=== PATIENT | male | born 1950 | race Caucasian/White ===

== ENCOUNTER 2018-10-29 09:31 | Day surgery (SDC) | payer MEDICARE ==
[2018-10-27 09:24] VITALS: BMI 27.3
[~2018-10-29 09:31] MED LIST: LACTATED RINGERS 1,000 ML IV SCH; LIDOCAINE 1% 20 ML VIAL (10MG/ML) FOR IV START INTRADERMA PRN
[2018-10-29 10:59] VITALS: RESP 16; TEMP 98.8
[2018-10-29] MEDS ORDERED: PROPOFOL 10 MG/ML 20 ML VIAL IV ONE (11:32)
[2018-10-29] MEDS ORDERED: GLUCAGON 1 MG/ML VIAL ONE (11:32)
--- NOTE | 2018-10-29 11:36 | P.GSHP ---
History of Present Illness H&P Date: 10/29/18 Chief Complaint: Screening colonoscopy This is a 68-year-old male who presents today for screening colonoscopy. Patient denies any significant GI complaints. 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 History of Any Multi-Drug Resistant Organisms: None Reported Past Surgical History: No Surgical Hx Reported Additional Past Surgical History / Comment(s): COLONOSCOPY Past Anesthesia/Blood Transfusion Reactions: No Reported Reaction Smoking Status: Never smoker - Past Family History Mother Family Medical History: No Reported History Medications and Allergies Home Medications Medication Instructions Recorded Confirmed Type No Known Home Medications 07/15/15 10/29/18 History Allergies Allergy/AdvReac Type Severity Reaction Status Date / Time No Known Allergies Allergy Verified 10/29/18 10:59 Surgical - Exam Vital Signs Temp Pulse Resp BP Pulse Ox 98.8 F 58 L 16 136/78 96 10/29/18 10:58 10/29/18 10:58 10/29/18 10:58 10/29/18 10:58 10/29/18 10:58 - General well developed, well nourished, no distress - Eyes PERRL - ENT normal pinna - Neck no masses - Respiratory normal expansion - Cardiovascular Rhythm: regular - Abdomen Abdomen: soft, non tender Assessment and Plan Assessment: We'll perform screening colonoscopy.
--- NOTE | 2018-10-29 11:51 | P.OP ---
Date of Procedure: 10/29/18 Preoperative Diagnosis: Reading colonoscopy Postoperative Diagnosis: Diverticulosis Procedure(s) Performed: Colonoscopy Anesthesia: MAC Surgeon: Raphael Benites Pathology: none sent Condition: stable Disposition: PACU Description of Procedure: The patient's placed on the endoscopy table in the lateral position. He received IV sedation. Digital rectal exam was performed which revealed no abnormalities. Flexible colonoscope was then placed patient anus passed throughout the entire colon. The ileocecal valve was visualized. The cecum, ascending transverse colon appeared normal. In the descending; there is extensive diverticular changes. The scope was then brought back the rectum this appeared normal. Scope was withdrawn for patient.
[2018-10-29 12:19] VITALS: BP 136/75; PULSE 60
== END 2018-10-29 12:25 | disposition home or self-care (01) ==
LOC: ORWHC2ENDO 09:31
PROVIDERS: ATTEND Surgery
DX: Z12.11 Encounter for screening for malignant neoplasm of colon (principal); K57.30 Diverticulosis of large intestine without perforation or abscess without bleeding; H93.19 Tinnitus, unspecified ear
CPT/HCPCS: J1610; J2704; G0121

== ENCOUNTER 2022-09-28 06:34 | Observation (INO) | payer MEDICARE ==
--- NOTE | 2022-09-28 06:54 | ED ---
Arrhythmia/Palpitations HPI - General Chief Complaint: Arrhythmia/Palpitations Stated Complaint: A-Fib Time Seen by Provider: 09/28/22 06:43 Source: patient, RN notes reviewed Mode of arrival: ambulatory Limitations: no limitations - History of Present Illness Initial Comments: This is a 72-year-old male who presents to the emergency department for new o nset A. fib. Patient was at [facility] this morning to get a radiofrequency ablation for chronic back pain. States that he has gotten this procedure every 6 months for the last 4-5 years. When they went to get his vitals and hook him up to the monitor at [facility], he was found to be in atrial fibrillation. He has no history of atrial fibrillation. Patient denies feeling any chest pain, shortness of breath, or palpitations. States that he does not have any medical problems and is not on any medication. Denies any fevers, chills, sore throat, cough, dyspnea, chest pain, palpitations, abdominal pain, nausea, vomiting, diarrhea, or headaches. - Related Data Home Medications Medication Instructions Recorded Confirmed Ibuprofen [Motrin] 800 mg PO BID PRN 09/28/22 09/28/22 Ibuprofen [Motrin] 800 mg PO DAILY 09/28/22 09/28/22 Allergies Allergy/AdvReac Type Severity Reaction Status Date / Time No Known Allergies Allergy Verified 09/28/22 08:42 Review of Systems ROS Statement: Those systems with pertinent positive or pertinent negative responses have been documented in the HPI. ROS Other: All systems not noted in ROS Statement are negative. 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 History of Any Multi-Drug Resistant Organisms: None Reported Past Surgical History: No Surgical Hx Reported Additional Past Surgical History / Comment(s): COLONOSCOPY Past Anesthesia/Blood Transfusion Reactions: No Reported Reaction Past Psychological History: No Psychological Hx Reported Smoking Status: Never smoker Past Alcohol Use History: Occasional Past Drug Use History: None Reported - Past Family History Mother Family Medical History: No Reported History General Exam Limitations: no limitations General appearance: alert, in no apparent distress Head exam: Present: atraumatic, normocephalic, normal inspection Respiratory exam: Present: normal lung sounds bilaterally. Absent: respiratory distress, wheezes, rales, rhonchi, stridor Cardiovascular Exam: Present: tachycardia, irregular rhythm Neurological exam: Present: alert, oriented X3, CN II-XII intact Psychiatric exam: Present: normal affect, normal mood Skin exam: Present: warm, dry, intact, normal color. Absent: rash Course Vital Signs 09/28/22 09/28/22 09/28/22 06:39 07:00 08:00 Temperature 98.1 F Pulse Rate 133 H 98 72 Respiratory 18 18 18 Rate Blood Pressure 133/81 121/83 122/87 O2 Sat by Pulse 98 95 96 Oximetry 09/28/22 09/28/22 09/28/22 09:00 10:00 11:00 Temperature Pulse Rate 101 H 117 H 107 H Respiratory 18 18 18 Rate Blood Pressure 116/83 109/55 123/85 O2 Sat by Pulse 95 95 95 Oximetry 09/28/22 12:00 Temperature Pulse Rate 112 H Respiratory 18 Rate Blood Pressure 110/77 O2 Sat by Pulse 96 Oximetry Medical Decision Making - Medical Decision Making This is a 72-year-old male who presents to the emergency department for new onset atrial fibrillation. Was pt. sent in by a medical professional or institution? @ -No Did you speak to anyone other than the patient for history? @ -No Did you review nursing and triage notes? @ -Yes, and I agree, it is accurate with regards to the patient's symptoms. Were old charts reviewed? @ -No Differential Diagnosis? @ -Not applicable EKG interpreted by me (3pts min.)? @ -EKG interpreted by me demonstrating the following: Atrial fibrillation. Ventricular rate 92 bpm, QRS duration 130 ms, QTc 397 ms. X-rays interpreted by me (1pt min.)? @ -Chest x-ray obtained, my interpretation identifies no localized consolidations or infiltrates. CT interpreted by me (1pt min.)? @ -Not obtained U/S interpreted by me (1pt. min.)? @ -Not obtained What testing was considered but not performed? (CT, X-rays, U/S, labs)? Why? @ -None What meds were considered but not given? Why? @ -None Did you discuss the management of the patient with other professionals? @ -Yes, Dr. Lovell, who accepts the patient for admission. Did you reconcile home meds? @ -No Was smoking cessation discussed for >3mins.? @ -No Was critical care preformed (if so, how long)? @ -No Were there social determinants of health that impacted care today? How? (Homelessness, low income, unemployed, alcoholism, drug addiction, transportation, low edu. Level, literacy, decrease access to med. care, intermediate, rehab)? @ -No Was there de-escalation of care discussed even if they declined? (Discuss DNR or withdrawal of care, Hospice)? @ -No What co-morbidities impacted this encounter? (DM, HTN, Smoking, COPD, CAD, Cancer, CVA, Hep., AIDS, mental health diagnosis, sleep apnea, morbid obesity)? @ -None Was patient admitted / discharged? @ -Admitted. Lab work obtained and found to be nonactionable. Chest x-ray reveals no acute process. Patient's heart rate was fairly erratic, ranging from 65-135 beats per minute while in the emergency department. He did continue to remain asymptomatic. Given the patient's age with new-onset atrial fibrillation, he was admitted to medicine for further management. Cardiology consult placed. He was started on low intensity heparin protocol. Undiagnosed new problem with uncertain prognosis? @ -None Drug Therapy requiring intensive monitoring for toxicity (Heparin, Nitro, Insulin, Cardizem)? @ -None Were any procedures done? @ -None Diagnosis/symptom? @ -New onset atrial fibrillation Acute, or Chronic, or Acute on Chronic? @ -Acute Uncomplicated (without systemic symptoms) or Complicated (systemic symptoms)? @ -Uncomplicated Side effects of treatment? @ -None Exacerbation, Progression, or Severe Exacerbation] @ -Not applicable Poses a threat to life or bodily function? @ -Yes This case was discussed in detail with the attending ED physician, Dr. Cobos. Presentation, findings, and treatment plan discussed in detail as well. - Lab Data Result diagrams: 09/28/22 06:59 09/28/22 06:59 Lab Results 09/28/22 09/28/22 09/28/22 Range/Units 06:59 06:59 06:59 WBC 7.9 (3.8-10.6) k/uL RBC 5.29 (4.30-5.90) m/uL Hgb 16.3 (13.0-17.5) gm/dL Hct 47.2 (39.0-53.0) % MCV 89.2 (80.0-100.0) fL MCH 30.8 (25.0-35.0) pg MCHC 34.5 (31.0-37.0) g/dL RDW 12.8 (11.5-15.5) % Plt Count 221 (150-450) k/uL MPV 8.3 Neutrophils % 53 % Lymphocytes % 27 % Monocytes % 7 % Eosinophils % 10 % Basophils % 1 % Neutrophils # 4.2 (1.3-7.7) k/uL Lymphocytes # 2.1 (1.0-4.8) k/uL Monocytes # 0.6 (0-1.0) k/uL Eosinophils # 0.8 H (0-0.7) k/uL Basophils # 0.1 (0-0.2) k/uL PT 10.5 (9.0-12.0) sec INR 1.0 (<1.2) APTT 23.7 (22.0-30.0) sec Sodium 140 (137-145) mmol/L Potassium 4.6 (3.5-5.1) mmol/L Chloride 109 H (98-107) mmol/L Carbon Dioxide 23 (22-30) mmol/L Anion Gap 8 mmol/L BUN 21 H (9-20) mg/dL Creatinine 0.81 (0.66-1.25) mg/dL Est GFR (CKD-EPI)AfAm >90 (>60 ml/min/1.73 sqM) Est GFR (CKD-EPI)NonAf >90 (>60 ml/min/1.73 sqM) Glucose 108 H (74-99) mg/dL Calcium 8.7 (8.4-10.2) mg/dL Magnesium 2.0 (1.6-2.3) mg/dL Total Bilirubin 0.5 (0.2-1.3) mg/dL AST 33 (17-59) U/L ALT 30 (4-49) U/L Alkaline Phosphatase 36 L (38-126) U/L Troponin I (0.000-0.034) ng/mL Total Protein 7.0 (6.3-8.2) g/dL Albumin 4.0 (3.5-5.0) g/dL TSH 1.860 (0.465-4.680) mIU/L 09/28/22 Range/Units 06:59 WBC (3.8-10.6) k/uL RBC (4.30-5.90) m/uL Hgb (13.0-17.5) gm/dL Hct (39.0-53.0) % MCV (80.0-100.0) fL MCH (25.0-35.0) pg MCHC (31.0-37.0) g/dL RDW (11.5-15.5) % Plt Count (150-450) k/uL MPV Neutrophils % % Lymphocytes % % Monocytes % % Eosinophils % % Basophils % % Neutrophils # (1.3-7.7) k/uL Lymphocytes # (1.0-4.8) k/uL Monocytes # (0-1.0) k/uL Eosinophils # (0-0.7) k/uL Basophils # (0-0.2) k/uL PT (9.0-12.0) sec INR (<1.2) APTT (22.0-30.0) sec Sodium (137-145) mmol/L Potassium (3.5-5.1) mmol/L Chloride (98-107) mmol/L Carbon Dioxide (22-30) mmol/L Anion Gap mmol/L BUN (9-20) mg/dL Creatinine (0.66-1.25) mg/dL Est GFR (CKD-EPI)AfAm (>60 ml/min/1.73 sqM) Est GFR (CKD-EPI)NonAf (>60 ml/min/1.73 sqM) Glucose (74-99) mg/dL Calcium (8.4-10.2) mg/dL Magnesium (1.6-2.3) mg/dL Total Bilirubin (0.2-1.3) mg/dL AST (17-59) U/L ALT (4-49) U/L Alkaline Phosphatase (38-126) U/L Troponin I <0.012 (0.000-0.034) ng/mL Total Protein (6.3-8.2) g/dL Albumin (3.5-5.0) g/dL TSH (0.465-4.680) mIU/L - Radiology Data Radiology results: report reviewed, image reviewed Disposition Clinical Impression: New onset atrial fibrillation Disposition: ADMITTED IP TO THIS HOSP
[2022-09-28 07:10] LABS: Basophils # (A) 0.1 k/uL (0-0.2); Basophils % (A) 1 %; Eosinophils # (A) 0.8 k/uL (0-0.7); Eosinophils % (A) 10 %; HCT 47.2 % (39.0-53.0); HGB 16.3 gm/dL (13.0-17.5); Lymphocytes # (A) 2.1 k/uL (1.0-4.8); Lymphocytes % (A) 27 %; MCH 30.8 pg (25.0-35.0); MCHC 34.5 g/dL (31.0-37.0); MCV 89.2 fL (80.0-100.0); Mean Platelet Volume 8.3; Monocytes # (A) 0.6 k/uL (0-1.0); Monocytes % (A) 7 %; Neutrophils # (A) 4.2 k/uL (1.3-7.7); Neutrophils % (A) 53 %; Platelet Count 221 k/uL (150-450); RBC 5.29 m/uL (4.30-5.90); RDW 12.8 % (11.5-15.5); WBC 7.9 k/uL (3.8-10.6)
[2022-09-28 07:15] LABS: ALT 30 U/L (4-49); AST 33 U/L (17-59); African American GFR (CKD) >90 (>60 ml/min/1.73 sqM); Alkaline Phosphatase 36 U/L (38-126); Anion Gap 8 mmol/L; Blood Urea Nitrogen 21 mg/dL (9-20); Calcium 8.7 mg/dL (8.4-10.2); Carbon Dioxide 23 mmol/L (22-30); Chloride 109 mmol/L (98-107); Glucose 108 mg/dL (74-99); Non-African American GFR(CKD) >90 (>60 ml/min/1.73 sqM); Potassium 4.6 mmol/L (3.5-5.1); Sodium 140 mmol/L (137-145); Total Bilirubin 0.5 mg/dL (0.2-1.3)
[2022-09-28 07:16] LABS: Partial Thromboplastin Time 23.7 sec (22.0-30.0); Prothrombin Time 10.5 sec (9.0-12.0)
--- NOTE | 2022-09-28 07:24 | XR ---
EXAMINATION TYPE: XR chest 2V DATE OF EXAM: 09/28/2022 COMPARISON: NONE HISTORY: Shortness of breath TECHNIQUE: Frontal and lateral views of the chest are obtained. FINDINGS: Scattered senescent parenchymal changes noted. Hyperinflation compatible with COPD. No evidence for infiltrate. No evidence for atelectasis. Heart size is stable. Mediastinal structures are stable and grossly unremarkable. No evidence for hilar prominence. Degenerative changes dorsal spine. IMPRESSION: 1. No evidence for acute pulmonary disease.
[2022-09-28] MEDS ORDERED: HEPARIN SODIUM 1,000 UN/ML (10ML VL) IV ONE (07:58)
[2022-09-28] MEDS ORDERED: HEPARIN SODIUM 1,000 UN/ML (10ML VL) IV PRN (07:58)
[2022-09-28] MEDS ORDERED: HEPARIN SOD,PORK IN 0.45% NACL 25,000 UNIT in 0.45% NACL 1 250ML.BAG IV SCH (08:00)
[2022-09-28] MEDS ORDERED: ONDANSETRON 4 MG/2 ML VIAL IVP PRN (08:23)
[2022-09-28] MEDS ORDERED: ACETAMINOPHEN TAB 325 MG TAB PO PRN (08:23)
[2022-09-28] MEDS ORDERED: NALOXONE 0.4 MG/ML 1 ML VIAL IV PRN (08:23)
[2022-09-28] MEDS ORDERED: KETOROLAC 15 MG/ML 1 ML VIAL IVP STA (08:28)
--- NOTE | 2022-09-28 11:21 | P.CRDCN ---
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 Patient has a past history of chronic back pain and multiple procedures and was scheduled for ablation today at [facility]. Patient was hooked up to a monitor and was found to be in atrial fibrillation was sent into the hospital for further evaluation. Patient denies feeling any fluttering sensation, palpitations, thumping. He denies chest pain. He is a lifelong nonsmoker. He drinks beer occasionally. 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 Patient is seen today in the emergency center waiting for a bed on the observation unit. 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 Initial telemetry was 1 33 bpm. EKG atrial fibrillation with ventricular rate of 92 bpm Chest x-ray: No acute process CBC unremarkable. Potassium 4.6, sodium 140, BUN 21 and creatinine 0.81. Blood sugar 108. Troponin negative 1. TSH 1.86. Home cardiac medications: None Review Of Systems: At the time of my evaluation: Constitutional: No fever, no chills. No weakness, fatigue or lethargy. EENT: No headache. No dizziness. Lungs: No shortness of breath, cough, no sputum production. No wheezing. Cardiovascular: No chest pain, no lower extremity edema. No palpitations. No paroxysmal nocturnal dyspnea. No orthopnea. No lightheadedness or dizziness. No syncopal episodes. Abdominal: No abdominal pain. No nausea, vomiting. No diarrhea. No constipation. No bloody or tarry stools. Genitourinary: No dysuria.. No urinary retention. Musculoskeletal: No myalgias. No muscle weakness, no frequent falls. No back pain. No neck pain. Integumentary: No wounds. No rash. No unusual bruising. Neurologic: No aphasia. No facial droop. No change in mentation. No head injury. No headache. Physical examination: Gen: This is a 72-year-old male. He is resting on ER stretcher and appears to be comfortable and in no acute distress. VS: reviewed HEENT: Head is atraumatic, normocephalic. Pupils equal, round. Sclerae is anicteric. NECK: Supple. No JVD. . LUNGS: Clear to auscultation. No wheezes or rhonchi. No intercostal retractions. HEART: Irregular rate and rhythm. No murmur. ABDOMEN: Soft EXTREMITIES: No pedal edema. NEUROLOGICAL: Patient is awake, alert and oriented x3. Assessment: A. fib with RVR, unknown onset Plan: Discontinue heparin drip and start eliquis 5 mg twice daily Start patient on Lopressor 50 mg twice daily Obtain 2-D echocardiogram and Doppler study to assess cardiac structure and function Continue telemetry monitoring Further recommendations to follow based upon clinical course Thank you kindly for this consultation. Nurse practitioner note has been reviewed, I agree with documented findings and plan of care. Patient was seen and examined. 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 History of Any Multi-Drug Resistant Organisms: None Reported Past Surgical History: No Surgical Hx Reported Additional Past Surgical History / Comment(s): COLONOSCOPY Past Anesthesia/Blood Transfusion Reactions: No Reported Reaction Past Psychological History: No Psychological Hx Reported Smoking Status: Never smoker Past Alcohol Use History: Occasional Past Drug Use History: None Reported - Past Family History Mother Family Medical History: No Reported History Medications and Allergies Home Medications Medication Instructions Recorded Confirmed Type Ibuprofen [Motrin] 800 mg PO BID PRN 09/28/22 09/28/22 History Ibuprofen [Motrin] 800 mg PO DAILY 09/28/22 09/28/22 History Allergies Allergy/AdvReac Type Severity Reaction Status Date / Time No Known Allergies Allergy Verified 09/28/22 08:42 Physical Exam Vitals: Vital Signs Temp Pulse Resp BP Pulse Ox 09/28/22 09:00 101 H 18 116/83 95 09/28/22 08:00 72 18 122/87 96 09/28/22 07:00 98 18 121/83 95 09/28/22 06:39 98.1 F 133 H 18 133/81 98 Intake and Output 09/27/22 09/28/22 09/28/22 22:59 06:59 14:59 Other: Weight 79.379 kg Results 09/28/22 06:59 09/28/22 06:59 Cardiac Enzymes 09/28/22 09/28/22 Range/Units 06:59 06:59 AST 33 (17-59) U/L Troponin I <0.012 (0.000-0.034) ng/mL Coagulation 09/28/22 Range/Units 06:59 PT 10.5 (9.0-12.0) sec APTT 23.7 (22.0-30.0) sec CBC 09/28/22 Range/Units 06:59 WBC 7.9 (3.8-10.6) k/uL RBC 5.29 (4.30-5.90) m/uL Hgb 16.3 (13.0-17.5) gm/dL Hct 47.2 (39.0-53.0) % Plt Count 221 (150-450) k/uL Comprehensive Metabolic Panel 09/28/22 Range/Units 06:59 Sodium 140 (137-145) mmol/L Potassium 4.6 (3.5-5.1) mmol/L Chloride 109 H (98-107) mmol/L Carbon Dioxide 23 (22-30) mmol/L BUN 21 H (9-20) mg/dL Creatinine 0.81 (0.66-1.25) mg/dL Glucose 108 H (74-99) mg/dL Calcium 8.7 (8.4-10.2) mg/dL AST 33 (17-59) U/L ALT 30 (4-49) U/L Alkaline Phosphatase 36 L (38-126) U/L Total Protein 7.0 (6.3-8.2) g/dL Albumin 4.0 (3.5-5.0) g/dL Current Medications Generic Name Dose Route Start Last Admin Trade Name Freq PRN Reason Stop Dose Admin Acetaminophen 650 mg 09/28/22 08:23 Acetaminophen Tab 325 Mg Tab PO Q6HR PRN Mild Pain or Fever > 100.5 Hydrocodone Bitart/Acetaminophen 1 each 09/28/22 08:23 Hydrocodone/Apap 5-325mg 1 Each Tab PO Q4HR PRN Moderate Pain (Scale 4 to 6) Apixaban 5 mg 09/28/22 10:45 Apixaban 5 Mg Tab PO BID [facility] Protocol Metoprolol Tartrate 50 mg 09/28/22 10:45 Metoprolol Tartrate 50 Mg Tab PO BID [facility] Naloxone HCl 0.2 mg 09/28/22 08:23 Naloxone 0.4 Mg/Ml 1 Ml Vial IV Q2M PRN Opioid Reversal Ondansetron HCl 4 mg 09/28/22 08:23 Ondansetron 4 Mg/2 Ml Vial IVP Q8HR PRN Nausea And Vomiting Intake and Output 09/27/22 09/28/22 09/28/22 22:59 06:59 14:59 Other: Weight 79.379 kg 09/28/22 06:59 09/28/22 06:59
[2022-09-28] MEDS: METOPROLOL TARTRATE 50 MG TAB PO SCH ×2 (11:23→20:02)
[2022-09-28] MEDS: APIXABAN 5 MG TAB PO SCH ×2 (11:23→20:02)
--- NOTE | 2022-09-28 15:12 | P.HPIM ---
History of Present Illness H&P Date: 09/28/22 History of present illness; patient is 72-year-old gentleman with past medical s ignificant for chronic back pain who presented to the ER after being deficits from outpatient orthopedic clinic for new onset A. fib. Patient normally gets regular radiofrequency ablation for his back pain. At the orthopedics office, patient was found to be in A. fib on the monitor. Patient has no prior history of A. fib. Denies any palpitations. Denies any chest pain. Denies any Shortness of breath. There was no complain of orthopnea or PND. Because of this new onset of A. fib patient was sent to ER Initial lab work done in the ER showed WBC 7.9, hemoglobin 6.3, platelet count 221, sodium 140, potassium 4.6, BUN 21, creatinine 0.81 EKG done in the ER showed medical rate of 92, QRS 1:30, no ST segment segment elevation seen Chest x-ray done showed no evidence for acute pulmonary disease patient was admitted to medicine service REVIEW OF SYSTEMS: CONSTITUTIONAL: No fever, no malaise, no fatigue. HEENT: No recent visual problems or hearing problems. Denied any sore throat. CARDIOVASCULAR: No chest pain, orthopnea, PND, no palpitations, no syncope. PULMONARY: No shortness of breath, no cough, no hemoptysis. GASTROINTESTINAL: No diarrhea, no nausea, no vomiting, no abdominal pain. NEUROLOGICAL: No headaches, no weakness, no numbness. HEMATOLOGICAL: Denies any bleeding or petechiae. GENITOURINARY: Denies any burning micturition, frequency, or urgency. MUSCULOSKELETAL/RHEUMATOLOGICAL: Denies any joint pain, swelling, or any muscle pain. ENDOCRINE: Denies any polyuria or polydipsia. The rest of the 14-point review of systems is negative. PHYSICAL EXAMINATION: GENERAL: The patient is alert and oriented x3, not in any acute distress. Well developed, well nourished. HEENT: Pupils are round and equally reacting to light. EOMI. No scleral icterus. No conjunctival pallor. Normocephalic, atraumatic. No pharyngeal erythema. No thyromegaly. CARDIOVASCULAR: S1 and S2 present. No murmurs, rubs, or gallops. PULMONARY: Chest is clear to auscultation, no wheezing or crackles. ABDOMEN: Soft, nontender, nondistended, normoactive bowel sounds. No palpable o rganomegaly. MUSCULOSKELETAL: No joint swelling or deformity. EXTREMITIES: No cyanosis, clubbing, or pedal edema. NEUROLOGICAL: Gross neurological examination did not reveal any focal deficits. SKIN: No rashes. Assessment and plan New onset atrial fibrillation Back pain Monitor vital signs Monitor CBC Monitor CMP Continue telemetry monitoring Start pharmacy dose heparin Ordered 2-D echo Consult cardiology Labs and medication were reviewed.. Continue same treatment. Continue with symptomatic treatment. Resume home medication. Monitor labs and vitals. DVT and GI prophylaxis. Further recommendations as per clinical course of the patient Dictation was produced using [employer] dictation software. please excuse any grammatical, word or spelling errors. 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 History of Any Multi-Drug Resistant Organisms: None Reported Past Surgical History: No Surgical Hx Reported Additional Past Surgical History / Comment(s): COLONOSCOPY Past Anesthesia/Blood Transfusion Reactions: No Reported Reaction Past Psychological History: No Psychological Hx Reported Smoking Status: Never smoker Past Alcohol Use History: Occasional Past Drug Use History: None Reported - Past Family History Mother Family Medical History: No Reported History Medications and Allergies Home Medications Medication Instructions Recorded Confirmed Type Ibuprofen [Motrin] 800 mg PO BID PRN 09/28/22 09/28/22 History Ibuprofen [Motrin] 800 mg PO DAILY 09/28/22 09/28/22 History Allergies Allergy/AdvReac Type Severity Reaction Status Date / Time No Known Allergies Allergy Verified 09/28/22 08:42 Physical Exam Vitals: Vital Signs Temp Pulse Resp BP Pulse Ox 09/28/22 09:00 101 H 18 116/83 95 09/28/22 08:00 72 18 122/87 96 09/28/22 07:00 98 18 121/83 95 09/28/22 06:39 98.1 F 133 H 18 133/81 98 Intake and Output 09/27/22 09/28/22 09/28/22 22:59 06:59 14:59 Other: Weight 79.379 kg Results CBC & Chem 7: 09/28/22 06:59 09/28/22 06:59 Labs: Abnormal Lab Results - Last 24 Hours (Table) 09/28/22 09/28/22 Range/Units 06:59 06:59 Eosinophils # 0.8 H (0-0.7) k/uL Chloride 109 H (98-107) mmol/L BUN 21 H (9-20) mg/dL Glucose 108 H (74-99) mg/dL Alkaline Phosphatase 36 L (38-126) U/L
[2022-09-28] MEDS: HYDROcodone/APAP 5-325MG 1 EACH TAB PO PRN (18:22)
[2022-09-29 07:35] VITALS: BP 111/60; PULSE 81; RESP 14; TEMP 97.8
[2022-09-29 08:21] LABS: Basophils # (A) 0.1 k/uL (0-0.2); Basophils % (A) 1 %; Eosinophils # (A) 0.6 k/uL (0-0.7); Eosinophils % (A) 8 %; HCT 40.8 % (39.0-53.0); HGB 14.1 gm/dL (13.0-17.5); Lymphocytes # (A) 1.8 k/uL (1.0-4.8); Lymphocytes % (A) 26 %; MCH 30.9 pg (25.0-35.0); MCHC 34.5 g/dL (31.0-37.0); MCV 89.7 fL (80.0-100.0); Monocytes # (A) 0.5 k/uL (0-1.0); Monocytes % (A) 7 %; Neutrophils # (A) 3.8 k/uL (1.3-7.7); Neutrophils % (A) 56 %; Platelet Count 203 k/uL (150-450); RBC 4.55 m/uL (4.30-5.90); RDW 12.8 % (11.5-15.5); WBC 6.8 k/uL (3.8-10.6)
[2022-09-29 08:44] LABS: ALT 27 U/L (4-49); AST 28 U/L (17-59); African American GFR (CKD) >90 (>60 ml/min/1.73 sqM); Albumin 3.4 g/dL (3.5-5.0); Albumin/Globulin Ratio 1.3; Alkaline Phosphatase 31 U/L (38-126); Anion Gap 6 mmol/L; Blood Urea Nitrogen 18 mg/dL (9-20); Calcium 8.5 mg/dL (8.4-10.2); Carbon Dioxide 25 mmol/L (22-30); Chloride 106 mmol/L (98-107); Globulin 2.7 g/dL; Glucose 101 mg/dL (74-99); Non-African American GFR(CKD) 88 (>60 ml/min/1.73 sqM); Potassium 4.3 mmol/L (3.5-5.1); Sodium 137 mmol/L (137-145); Total Bilirubin 0.7 mg/dL (0.2-1.3); Total Protein 6.1 g/dL (6.3-8.2)
[2022-09-29] MEDS: HYDROcodone/APAP 5-325MG 1 EACH TAB PO PRN (09:38)
[2022-09-29] MEDS: APIXABAN 5 MG TAB PO SCH (09:39)
[2022-09-29] MEDS: METOPROLOL TARTRATE 50 MG TAB PO SCH (09:39)
--- NOTE | 2022-09-29 11:06 | CA ---
Transthoracic Echo Report Name: Doug Polanco Age: 72 Gender: M : 1950 Exam Date: 09/28/2022 11:36 Exam Location: [place] [facility] Ht (in): 68 Wt (lb): 175 Ordering Physician: Deana Ordonez Attending/Referring Phys: [id number], [facility] Coordinator Gerry Gautam Procedure CPT: Indications: LVF Cardiac Hx: Technical Quality: Fair Contrast 1: Total Dose (mL): Contrast 2: Total Dose (mL): MEASUREMENTS (Male / Female) Normal Values 2D ECHO LV Diastolic Diameter PLAX 4.0 cm 4.2 - 5.9 / 3.9 - 5.3 cm LV Systolic Diameter PLAX 2.6 cm IVS Diastolic Thickness 1.2 cm 0.6 - 1.0 / 0.6 - 0.9 cm LVPW Diastolic Thickness 1.1 cm 0.6 - 1.0 / 0.6 - 0.9 cm LV Relative Wall Thickness 0.6 RV Internal Dim ED PLAX 2.6 cm LVOT Diameter 2.1 cm Aortic Root Diameter 3.2 cm LA Systolic Diameter LX 2.2 cm 3.0 - 4.0 / 2.7 - 3.8 cm LV Diastolic Volume MOD BP 40.8 cm??? 67 - 155 / 56 - 104 cm??? LV Systolic Volume MOD BP 18.3 cm??? 22 - 58 / 19 - 49 cm??? LV Ejection Fraction MOD BP 55.1 % >= 55 % LV Diastolic Volume MOD 4C 46.3 cm??? LV Systolic Volume MOD 4C 24.9 cm??? LV Ejection Fraction MOD 4C 46.4 % LV Diastolic Length 4C 6.9 cm LV Systolic Length 4C 6.2 cm LV Diastolic Volume MOD 2C 35.8 cm??? LV Systolic Volume MOD 2C 12.7 cm??? LV Ejection Fraction MOD 2C 64.5 % LV Diastolic Length 2C 6.8 cm LV Systolic Length 2C 5.8 cm LA Volume 42.3 cm??? 18 - 58 / 22 - 52 cm??? Ascending Aorta Diameter 3.1 cm DOPPLER AV Peak Velocity 108.4 cm/s AV Peak Gradient 4.7 mmHg LVOT Peak Velocity 105.6 cm/s LVOT Peak Gradient 4.5 mmHg AV Area Cont Eq pk 3.3 cm??? MV Peak Velocity 89.1 cm/s MV Peak Gradient 3.2 mmHg MV Mean Velocity 43.6 cm/s MV Mean Gradient 0.9 mmHg MV Velocity Time Integral 25.6 cm MR Peak Velocity 329.6 cm/s MR Peak Gradient 43.4 mmHg Mitral E Point Velocity 84.2 cm/s Mitral A Point Velocity 30.8 cm/s Mitral E to A Ratio 2.7 MV Deceleration Time 191.8 ms MV E' Velocity 9.8 cm/s Mitral E to MV E' Ratio 8.6 TR Peak Velocity 211.5 cm/s TR Peak Gradient 17.9 mmHg Right Ventricular Systolic Press 22.9 mmHg FINDINGS Left Ventricle Mildly increased septal wall thickness. Left ventricular ejection fraction is estimated at 45-50 %. Right Ventricle Normal right ventricular size. RVSP= 22mmhg. Right Atrium Normal right atrial size. Left Atrium Normal left atrial size. LA volume index= 22ml/m2 Mitral Valve Structurally normal mitral valve. Trace MR. Aortic Valve Trileaflet aortic valve. No aortic valve stenosis or regurgitation. Tricuspid Valve Structurally normal tricuspid valve. Trace TR. Pulmonic Valve Pulmonic valve not well visualized. No pulmonic regurgitation. Pericardium Normal pericardium. Aorta Normal size aortic root. CONCLUSIONS Normal LV size with mildly reduced LV systolic function but patient was in A. fib at that time No structural valvular abnormalities Previewed by: Dr. Michael Costa MD (Electronically Signed) Final Date: 29 September 2022 11:05
--- NOTE | 2022-09-29 12:51 | P.DS ---
Providers Date of admission: 09/28/22 08:30 Expected date of discharge: 09/29/22 Attending physician: Richard Lovell MD Consults: 09/28/22 08:23 Consult Physician Urgent Consulting Provider: Carmelo Felix Consult Reason/Comments: New onset a-fib Do you want consulting provider notified?: Yes Primary care physician: Jailyn Palma [facility] Course: Discharge diagnoses; New onset atrial fibrillation Back pain Hospital course; patient is 72-year-old gentleman with past medical significant for chronic back pain who presented to the ER after being deficits from outpatient orthopedic clinic for new onset A. fib. Patient normally gets regular radiofrequency ablation for his back pain. At the orthopedics office, patient was found to be in A. fib on the monitor. Patient has no prior history of A. fib. Denies any palpitations. Denies any chest pain. Denies any Shortness of breath. There was no complain of orthopnea or PND. Because of this new onset of A. fib pat ient was sent to ER Initial lab work done in the ER showed WBC 7.9, hemoglobin 6.3, platelet count 221, sodium 140, potassium 4.6, BUN 21, creatinine 0.81 EKG done in the ER showed medical rate of 92, QRS 1:30, no ST segment segment elevation seen Chest x-ray done showed no evidence for acute pulmonary disease patient was admitted to medicine service 09/29. Patient seen and examined. Cardiology evaluated the patient, recommended keeping patient on Eliquis and Toprol at discharge. Patient converted to normal sinus rhythm. 2-D echo done showed mildly increased septal wall thickness, LVEF of 45-50%. Cardiology cleared the patient for discharge PHYSICAL EXAMINATION: GENERAL: The patient is alert and oriented x3, not in any acute distress. Well developed, well nourished. HEENT: Pupils are round and equally reacting to light. EOMI. No scleral icterus. No conjunctival pallor. Normocephalic, atraumatic. No pharyngeal erythema. No thyromegaly. CARDIOVASCULAR: S1 and S2 present. No murmurs, rubs, or gallops. PULMONARY: Chest is clear to auscultation, no wheezing or crackles. ABDOMEN: Soft, nontender, nondistended, normoactive bowel sounds. No palpable organomegaly. MUSCULOSKELETAL: No joint swelling or deformity. EXTREMITIES: No cyanosis, clubbing, or pedal edema. NEUROLOGICAL: Gross neurological examination did not reveal any focal deficits. SKIN: No rashes. Dictation was produced using [employer] dictation software. please excuse any grammatical, word or spelling errors. Patient Condition at Discharge: Good Plan - Discharge Summary Discharge Rx Participant: No New Discharge Prescriptions: New Apixaban [Eliquis] 5 mg PO BID #60 tab Metoprolol Succinate (ER) [Toprol XL] 25 mg PO DAILY #30 tab Continue Ibuprofen [Motrin] 800 mg PO BID PRN PRN Reason: Pain Ibuprofen [Motrin] 800 mg PO DAILY Discharge Medication List Ibuprofen [Motrin] 800 mg PO BID PRN 09/28/22 [History] Ibuprofen [Motrin] 800 mg PO DAILY 09/28/22 [History] Apixaban [Eliquis] 5 mg PO BID #60 tab 09/29/22 [Rx] Metoprolol Succinate (ER) [Toprol XL] 25 mg PO DAILY #30 tab 09/29/22 [Rx] Follow up Appointment(s)/Referral(s): Jailyn Palma DO [Primary Care Provider] - 1-2 days Carmelo Felix MD [STAFF PHYSICIAN] - 1 Week Discharge Disposition: HOME SELF-CARE
--- NOTE | 2022-09-29 13:10 | P.PN ---
Subjective Progress Note Date: 09/29/22 This is Pradip Dutton NP, I'm dictating on behalf of Dr. Costa's H&P and A&P. Patient was interviewed and examined. Patient is a pleasant 72-year-old male who presented to the hospital with new onset atrial fibrillation. Patient reports that he is feeling fine today. Patient is currently maintaining normal sinus rhythm. His heart rate is somewhat low at 50. Patient was recently started on metoprolol 50 mg twice a day. Patient's echocardiogram demonstrated normal LV size with mildly reduced LV systolic function, however the patient was still in A. fib during the time of the echocardiogram. This will need to be repeated at a later date. From a welfare officer standpoint the patient appears stable and ready for discharge at this time. GENERAL: Well-appearing, well-nourished and in no acute distress. NECK: Supple without JVD or thyromegaly. LUNGS: Breath sounds clear to auscultation bilaterally. Respiration equal and unlabored. No wheezes, rales or rhonchi. HEART: Regular rate and rhythm without murmurs, rubs or gallops. S1 and S2 heard. EXTREMITIES: Normal range of motion, no edema. No clubbing or cyanosis. Peripheral pulses intact and strong. VITALS: Temp 97.8, pulse 81, respirations 14, blood pressure 111/60, O2 saturation 95% on room air TELEMETRY: Sinus bradycardia, heart rate 50 LABS: White count 6.8, hemoglobin 14.1, platelets 203, sodium 137, potassium 4.3, B1 18, creatinine 0.87, calcium 8.5, magnesium 2.0 IMPRESSION: 1. A. fib with RVR, unknown onset PLAN: Obtain lipid panel and hemoglobin A1c. Patient may be discharged after labs. Patient should be discharged home on Alquist 5 mg twice a day. Patient should be discharged home on metoprolol succinate 25 mg daily. Patient will follow-up in the office with Dr. Felix. Thank you for allowing us to participate in the care of this patient. Objective - Vital Signs Vital signs: Vital Signs Temp 97.8 F 09/29/22 07:00 Pulse 81 09/29/22 07:00 Resp 14 09/29/22 07:00 BP 111/60 09/29/22 07:00 Pulse Ox 95 09/29/22 07:00 FiO2 Intake & Output 08/11/23 08/12/23 08/12/23 18:59 06:59 18:59 Intake Total 240 1000 118 Balance 240 1000 118 Weight 79.379 kg Intake: Oral 240 1000 118 Other: Voiding Method Toilet # Voids 1 2 - Labs CBC & Chem 7: 09/29/22 07:44 09/29/22 07:44 Labs: Abnormal Lab Results - Last 24 Hours (Table) 09/29/22 Range/Units 07:44 Glucose 101 H (74-99) mg/dL Alkaline Phosphatase 31 L (38-126) U/L Total Protein 6.1 L (6.3-8.2) g/dL Albumin 3.4 L (3.5-5.0) g/dL
[2022-09-30 07:59] LABS: Chol/HDL Ratio 4.09 Ratio; LDL Cholesterol,Calculated 103.4 mg/dL (0.0-131.0)
== END 2022-09-29 14:18 | disposition home or self-care (01) ==
LOC: EC 06:34 → 3SCARD 08:30 → 6NMEDSUR 09:33
PROVIDERS: ADMIT Internal Medicine; ATTEND Internal Medicine
DX: I48.91 Unspecified atrial fibrillation (principal); G89.29 Other chronic pain; M54.9 Dorsalgia, unspecified; H93.19 Tinnitus, unspecified ear; Z79.1 Long term (current) use of non-steroidal anti-inflammatories (NSAID); Z79.891 Long term (current) use of opiate analgesic; Z79.899 Other long term (current) drug therapy; Z98.890 Other specified postprocedural states
CPT/HCPCS: 96365; 96366; 99285; 36415; 93005; 93306; 80061; 80053 ×2; 83735; 84443; 84484; 85025 ×2; 85610; 85730; 83036; 71046; G0378 ×2; J1644 ×2; J1885